=== PATIENT | male | born 1960 | race Caucasian/White ===

== ENCOUNTER 2019-01-02 08:15 | Emergency (ER) | payer BC, SELFPAY ==
[2019-01-02 08:16] VITALS: BP 204/110; PULSE 84; RESP 16; TEMP 36.7; O2SAT 99; BMI 31.0
--- NOTE | 2019-01-02 08:29 | EKG12_ITS ---
Test Reason : CP Blood Pressure : / mmHG Vent. Rate : 083 BPM Atrial Rate : 083 BPM P-R Int : 162 ms QRS Dur : 100 ms QT Int : 360 ms P-R-T Axes : 053 024 044 degrees QTc Int : 423 ms Normal sinus rhythm Nonspecific ST abnormality Abnormal ECG Confirmed by JAMES CARMONA, VINCENT ([id number]), general expeditor ASHLIE CALDERÓN ([id number]) on 01/05/2019 11:37:43 AM Referred By: JOSEPH Confirmed By:VINCENT RAMIREZ MD
--- NOTE | 2019-01-02 08:29 | RAD_ITS ---
STUDY: X-RAY CHEST REASON FOR EXAM: Male, 58 years old. Intermittent chest pain one week TECHNIQUE : Single AP portable view of the chest. COMPARISON: None. FINDINGS: The lungs are clear and expanded. There is no demonstrated pleural abnormality. There is borderline cardiomegaly. Normal mediastinum and ryan. Normal visualized pulmonary arteries. There is atherosclerotic tortuosity of the aortic arch and descending thoracic aorta. There are diffuse degenerative changes of the visualized thoracic spine. Normal visualized ribs, clavicles, and shoulders. There is no demonstrated abnormality of the visualized soft tissue structures of the upper abdomen. RAD/Chest 1 View (Portable) IMPRESSION: Borderline, Cardiac enlargement and tortuous aorta no visualized acute focal infiltrate. Electronically Signed: Shagufta Montalvo MD at 9:00 EST Tel , Service support ,
[2019-01-02] MEDS: Aspirin 81 MG TAB.CHEW 324 MG PO (08:38)
--- NOTE | 2019-01-02 08:45 | ED.VISSUMM ---
- ER Visit Summary Date of Service: 01/02/19 Chief Complaint: Chest pain History of Present Illness: The patient is a 58 M with right-sided chest pain that has been going on for about a week and a half. The pain is dull. It is in his right upper chest and radiates to his back. Does get severe at times, but nothing seems to bring it on or make it worse. He takes Aleve, and it seems to help. 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 This was attributed to tobacco use. He was cathed and found to have a lesion which was treated with balloon angioplasty, but not amenable to stenting. He takes aspirin daily. Denies any history of PE or DVT. Denies any history of aortic disease. Denies any other associated symptoms like sweats, shortness of breath, nausea, lightheadedness, etc. Physical Examination: Blood pressure 204/110. Otherwise vitals unremarkable. Afebrile. Alert and oriented. No acute distress. Heart regular rate and rhythm with no murmurs. Lungs clear bilaterally. Extremities nontender with no edema. Pulses strong and equal. Skin appears normal without diaphoresis or pallor. Test Results: EKG shows sinus rhythm at a rate of [address] segment changes. No sign of acute ischemia or infarction pattern. There is no old EKG for comparison. Laboratory studies and chest x-ray are pending. Emergency Department Course and Treatment: Patient was placed on a monitor. EKG as above. He was treated with aspirin. His repeat blood pressure after sitting in the room for a few moments was 177/94. We will continue to monitor. Testing is pending. Work-up was all unremarkable. On reevaluation, patient is comfortable. Heart scores of 4. I was advising observation. Hospitalist spoke with the patient. He would like to go home. We will treat with aspirin, lisinopril, and Lipitor. Patient will also receive a Medrol Dosepak and use anti-inflammatories regularly. Follow-up with primary care for outpatient management. Treatment Plan: As above Disposition: Discharge Impression: 1. Chest pain This note was generated with [employer] software. It may contain incorrect words, spelling, and punctuation that were not noted in review of the chart prior to signing ED Disposition - Plan for ED Patient: Referrals: Remington Spencer MD [Primary Care Provider] -
[2019-01-02 08:46] LABS: Absolute Lymphocyte Count 1.58 X10^3/uL (0.83-4.51); Absolute Neutrophil Count 3.2 X10^3/uL (2.0-7.7); Basophil# 0.04 X10^3/uL; Basophil% 0.7 % (0-1); Eosinophil# 0.42 X10^3/uL; Eosinophils% 7.1 % (0-5); Hematocrit 44.7 % (40-54); Hemoglobin 15.4 g/dL (13.0-16.5); Lymphocyte # 1.58 X10^3/ul (4.0); Lymphocyte % 26.8 % (19-41); Mean Corp Hgb Conc 34.5 g/dL (32-36); Mean Corpuscular Hgb 28.3 pg (27.0-32.0); Mean Platelet Vol. 9.6 fl (6.2-12.0); Monocyte# 0.67 X10^3/uL; Monocyte% 11.4 % (0-10); NRBC Flagged by Analyzer 0 % (0-5); Neutrophil # 3.18 X10^3/uL (2.7-7.7); Neutrophil % 53.8 % (47-70); Platelet Count 198 K/mm3 (150-450); RBC Distribution Width CV 12.2 % (11.6-14.6); RBC Distribution Width SD 36.2 fl (35.1-43.9); Red Blood Count 5.45 M/mm3 (4.6-6.2); White Blood Count 5.9 K/mm3 (4.4-11.0)
[2019-01-02 08:47] VITALS: O2SAT 100
[2019-01-02 09:02] LABS: Anion Gap 6 (5-15); BUN 16 mg/dL (7-18); BUN/Creat Ratio 15.7 RATIO (10-20); Calcium,Total 8.8 mg/dL (8.5-10.1); Chloride 105 mmol/L (98-107); Creatinine, Serum 1.02 mg/dL (0.70-1.30); EST Glomerular Filtration Rate 80 mL/min (>60); Est Glom Filt Rate - Afr Amer 97 mL/min (>60); Glucose 197 mg/dL (74-106); Potassium 3.9 mmol/L (3.5-5.1); Sodium Level 139 mmol/L (136-145)
--- NOTE | 2019-01-02 10:14 | ED.DEP ---
ED Disposition - Plan for ED Patient: Instructions: CHEST PAIN, NonCardiac Prescriptions: Aspirin [Aspir 81] 81 mg PO DAILY #30 tablet.dr Prescription Printed Atorvastatin Calcium [Lipitor] 20 mg PO QHS #30 tab Prescription Printed Lisinopril 20 mg PO DAILY #30 tab Prescription Printed MethylPREDNISolone DosePak [Medrol DosePak] 4 mg PO UD #1 box Prescription Printed Referrals: Remington Spencer MD [Primary Care Provider] -
[2019-01-02 10:23] VITALS: BP 159/100; PULSE 67; RESP 17; O2SAT 99
== END 2019-01-02 10:28 | disposition home or self-care (01) ==
PROVIDERS: Emergency Provider Emergency Medicine; Family Provider Family Medicine; PCP Family Medicine
DX: R07.9 Chest pain, unspecified (principal); I25.2 Old myocardial infarction; Z79.82 Long term (current) use of aspirin; I25.10 Atherosclerotic heart disease of native coronary artery without angina pectoris; Z87.891 Personal history of nicotine dependence
CPT/HCPCS: 71045; 80048; 84484; 85025; 93005; 99285; A4216

== ENCOUNTER → 2019-02-21 15:16 | Outpatient (CLI) | payer BC, SELFPAY ==
--- NOTE | 2019-02-21 15:22 | RAD_ITS ---
STUDY: X-RAY - CERVICAL SPINE REASON FOR EXAM: Male, 58 years old. NECK PAIN, NO TRAUMA TECHNIQUE: 6 view(s) of the cervical spine were obtained. COMPARISON: None FINDINGS: Normal anterior atlantoaxial articulation. Normal odontoid process. Normal cervical lordosis. There is endplate spondylosis of the cervical spine from C5 to T1. There is severe disc space narrowing at the C5-6, C6-7, and C7-T1 levels. There is multi-level osseous foraminal stenosis. The soft tissue structures are unremarkable. RAD/Cerv Spine 4 or 5 Views IMPRESSION: Degenerative changes as detailed above. Electronically Signed: Frankie Golden MD at 23:56 EST , Service support ,
--- NOTE | 2019-02-21 15:22 | RAD_ITS ---
STUDY: X-RAY - THORACIC SPINE REASON FOR EXAM: Male, 58 years old. BACK PAIN, NO TRAUMA TECHNIQUE: 3 view(s) of the thoracic spine were obtained. COMPARISON: None. FINDINGS: Normal kyphosis of the thoracic spine. There is a mild thoracic dextroscoliosis. There is diffuse endplate spondylosis. Normal disc space heights. The soft tissue structures are unremarkable. RAD/Thoracic Spine 3 Views IMPRESSION: Mild thoracic dextroscoliosis. Diffuse endplate spondylosis of the thoracic spine. There is no evidence of fracture or subluxation. Disc spacing is preserved. Electronically Signed: Frankie Golden MD at 23:55 EST , Service support ,
== END ==
PROVIDERS: Family Provider Family Medicine; PCP Family Medicine; Referring Provider Family Medicine; Visit Provider Family Medicine
DX: M54.2 Cervicalgia (principal)
CPT/HCPCS: 72050; 72072

== ENCOUNTER 2019-03-28 17:30 | Outpatient (RCR) | payer BC, SELFPAY ==
--- NOTE | 2019-03-03 16:35 | HP.PTEVAL ---
Patient's Visit Information DEISI COLEMAN is a 58 year old M referred to Physical Therapy by Remington Spencer MD with a diagnosis of CERVICALALGIA,BACK PAIN,DDD. Date of Evaluation: 03/03/19 Physical Therapist: Rolando Rueda PT, Cert MDT, OCS - Visit Plan Frequency: 2x /Week Duration: 4 Weeks Plan: PT INTERVENTION ICTX 18-26# X15MIN ,THORACIC MOBILITY,CERVICAL /POSTURAL EX'S. MANUAL THERAPY - Subjective Findings: This 58 y/o male presents to physical therapy with cervical pain. Patient had cervical with symptoms between shoulder blades radiated to chest. Symptoms noticed with walking on treadmill with arms motion thus had urning and muscle spasms . Patient went to ER cardiac workup at [facility] and [facility]. Patient seen DR lehman PT . Denies parathesia/tingling. Denies CARTER/dizziness/tinnutus. Patient sleeping good. Patient pain affects ADL'S ,job demands and function. Aggavating factors lifting,exercise . Alleviating factors rest. VOCATION: [employer]. SOCAIL: - Pain Bilateral Neck Pain Intensity (Out of 10): 1 Pain Intensity Range: 10 - Objective POSTURE: mild foward posture ,rounded shoulders. NEURO: denies parathesia/tingling,reflexes C5-6-7. PALAPTION: tender UT/scapular. CERVICAL ROM: flexion min loss,rotation/lateral flexion min/mod loss,extension mod loss. THORCACIC ROM: flexion min loss ,extension mod loss,rotation mod loss. MMT: BUE 4/5 ,SHOULDER 4-/5 with h/o DJD G-H - Special Tests C/S Radiculapathy - Left Upper limb tension test: Negative C/S Radiculapathy - Right Upper limb tension test: Negative C/S Radiculapathy - Left Spurlings: Negative C/S Radiculapathy - Right Spurlings: Negative C/S Radiculapathy - Left Cervical distraction: Negative C/S Radiculapathy - Right Cervical distraction: Negative C/S Radiculapathy - Left Relief test: Negative C/S Radiculapathy - Right Relief test: Negative Sharp Rolando: Negative Vertebral Artery Test: Negative Alar Ligament Test: Negative Cervical Sitting: Protrusion - Mechanical Response: No effect Cervical Sitting: Protrusion - Symptoms During Testing: No effect Cervical Sitting: Protrusion - Symptoms After Testing: No effect Cervical Sitting: Retraction - Mechanical Response: No effect Cervical Sitting: Retraction - Symptoms During Testing: Increases Cervical Sitting: Retraction - Symptoms After Testing: No worse Cervical Sitting: Retraction-Extension - Mechanical Response: No effect Cerv Sitting: Retraction-Extension - Symptoms During Testing: Increases Cerv Sitting: Retraction-Extension - Symptoms After Testing: No worse Cervical Sitting: Sidebend Right - Mechanical Response: No effect Cervical Sitting: Sidebend Right - Symptoms During Testing: No effect Cervical Sitting: Sidebend Right - Symptoms After Testing: No effect Cervical Sitting: Sidebend Left - Mechanical Response: No effect Cervical Sitting: Sidebend Left - Symptoms During Testing: No effect Cervical Sitting: Sidebend Left - Symptoms After Testing: No effect Cervical Sitting: Rotation Right - Mechanical Response: No effect Cervical Sitting: Rotation Right - Symptoms During Testing: No effect Cervical Sitting: Rotation Right - Symptoms After Testing: No effect Cervical Sitting: Rotation Left - Mechanical Response: No effect Cervical Sitting: Rotation Left - Symptoms During Testing: No effect Cervical Sitting: Rotation Left - Symptoms After Testing: No effect Cervical Sitting: Flexion - Mechanical Response: No effect Cervical Sitting: Flexion - Symptoms During Testing: Produces Cervical Sitting: Flexion - Symptoms After Testing: No effect - Goals Goal 1:: Patient to be Independanmt with HEP. Goal Time Frame: 4-6 Weeks Goal 2:: Patient improve posture for job demnads Goal Time Frame: 4-6 Weeks Goal 3:: Patient decrease cervical pain by 50 % or> to improve function with ADLS. Goal Time Frame: 4-6 Weeks Goal 4:: Patient to increase cervical ROM for function of recovery Goal Time Frame: 4-6 Weeks Goal 5:: Patient to improve neck owestry by 5 points or > to improve function. - Rehabilitation Potential Physical Therapy Diagnosis: This patient has cervical pain radiaties to scapular abd anter chest with decrease ROM cervical trhoracic ,x-Rays showed DDD thus benifit from skilled PT Rehabilitation Potential: Good - Anticipated Interventions Patient/Client Instruction: Educate patient on: Condition, Plan of Care For the Purpose of:: To decrease pain, To increase ROM, To improve muscle performance and motor function, To improve ability to perform ADL's, To increase tolerance to activity/condition/position, To improve performance and independence with ADL's, To improve ability of physical actions for home/community/work/leisure, To improve gait and locomotor functions, To improve health of tissue, To decrease soft tissue restriction, To increase flexibility/ROM, To improve ability to perform tasks related to life management Therapeutic Exercise to Include: Strength training, Body mechanics, Postural training, Flexibilty training, Active ROM For the Purpose of:: To decrease pain, To increase ROM, To improve muscle performance and motor function, To improve ability to perform ADL's, To increase tolerance to activity/condition/position, To improve ability of physical actions for home/community/work/leisure, To improve health of tissue, To decrease soft tissue restriction, To increase flexibility/ROM, To improve ability to perform tasks related to life management TENS: Yes IF ES: Yes Cryotherapy (ice pack, ice massage): Yes Thermo therapy (hot pack): Yes Ultrasound (thermal/non thermal): Yes Intermittent cervical traction: Yes - # For the Purpose of:: To decrease pain, To increase ROM, To improve nutrient delivery to tissue, To increase oxygenation perfusion, To improve health of tissue, To decrease soft tissue restriction, To increase flexibility/ROM Thank you for the opportunity to evaluate your patient. For Medicare and Medicare HMO plans, please review the plan of care and approve it. It will need to be FAXED BACK to us at [phone] for Medicare purposes. For Medicare only, by signing this I certify the plan of care. Please let me know if there are questions or concerns regarding this plan of care. Physician Signature: Date:
--- NOTE | 2019-05-30 10:50 | HP.PTDCNRP_ITS ---
DEISI COLEMAN was seen in my office for initial evaluation on 03/03/19. The following Plan of Care was established for this patient: Initial Frequency: 2x /Week Initial Duration: 4 Weeks Patient/Client Instruction: Educate patient on: Condition, Plan of Care For the Purpose of:: To decrease pain, To increase ROM, To improve muscle performance and motor function, To improve ability to perform ADL's, To increase tolerance to activity/condition/position, To improve performance and independence with ADL's, To improve ability of physical actions for home/community/work/leisure, To improve gait and locomotor functions, To improve health of tissue, To decrease soft tissue restriction, To increase flexibility/ROM, To improve ability to perform tasks related to life management Therapeutic Exercise to Include: Strength training, Body mechanics, Postural training, Flexibilty training, Active ROM For the Purpose of:: To decrease pain, To increase ROM, To improve muscle performance and motor function, To improve ability to perform ADL's, To increase tolerance to activity/condition/position, To improve ability of physical actions for home/community/work/leisure, To improve health of tissue, To decrease soft tissue restriction, To increase flexibility/ROM, To improve ability to perform tasks related to life management TENS: Yes IF ES: Yes Cryotherapy (ice pack, ice massage): Yes Thermo therapy (hot pack): Yes Ultrasound (thermal/non thermal): Yes Intermittent cervical traction: Yes - -# For the Purpose of:: To decrease pain, To increase ROM, To improve nutrient delivery to tissue, To increase oxygenation perfusion, To improve health of tis ricky, To decrease soft tissue restriction, To increase flexibility/ROM This patient was last seen in our office 03/28/19. Pertinent comments regarding their Physical therapy will appear below: Patient seen for PT for cervicalgia,back pain . PT interventions to include MODALTIES ICTX, postural strengthening mobility thoracic spine. At this point I will be discontinuing this patient from physical therapy. I would be happy to see this patient again in the future if found appropriate by the physician. Thank you! Rolando Rueda, PT, Cert MDT, OCS
== END 2019-03-28 19:00 | disposition home or self-care (01) ==
LOC: PT 17:30
PROVIDERS: PCP Family Medicine; Referring Provider Family Medicine; Visit Provider Family Medicine
DX: M54.9 Dorsalgia, unspecified (principal); M50.30 Other cervical disc degeneration, unspecified cervical region; M51.34 Other intervertebral disc degeneration, thoracic region
CPT/HCPCS: 97012; 97110; 97162

== ENCOUNTER → 2022-01-09 | Outpatient (CLI) | payer BC, SELFPAY ==
[2022-01-09 18:01] LABS: Hematocrit 43.8 % (40-54); Hemoglobin 14.8 g/dL (13.0-16.5); Mean Corp Hgb Conc 33.8 g/dL (32-36); Mean Corpuscular Hgb 27.8 pg (27.0-32.0); Mean Corpuscular Volume 82.3 fL (80-94); Mean Platelet Vol. 10.6 fl (6.2-12.0); Platelet Count 261 K/mm3 (150-450); RBC Distribution Width SD 35.8 fl (35.1-43.9); Red Blood Count 5.32 M/mm3 (4.6-6.2); White Blood Count 7.3 K/mm3 (4.4-11.0)
[2022-01-09 18:37] LABS: Anion Gap 9 (5-15); BUN 15 mg/dL (7-18); BUN/Creat Ratio 14.6 RATIO (10-20); Chloride 99 mmol/L (98-107); Cholesterol 227 mg/dL (200); Creatinine, Serum 1.03 mg/dL (0.70-1.30); EST Glomerular Filtration Rate 78 mL/min (>60); Est Glom Filt Rate - Afr Amer 95 mL/min (>60); Glucose 249 mg/dL (74-106); High Density Lipoprotein 40 mg/dL; Potassium 3.7 mmol/L (3.5-5.1); Sodium Level 135 mmol/L (136-145); Triglycerides 289 mg/dL; Very Low Density Lipoprotein 58 mg/dL (5-40)
== END | disposition home or self-care (01) ==
LOC: MFPLAB 16:59
PROVIDERS: PCP Family Medicine; Visit Provider Family Medicine
DX: I10 Essential (primary) hypertension (principal); Z12.5 Encounter for screening for malignant neoplasm of prostate
CPT/HCPCS: 36415; 80048; 80061; 84153; 85027; G0103

== ENCOUNTER → 2022-03-12 | Outpatient (CLI) | payer BC, SELFPAY ==
[2022-03-12 10:20] LABS: Bacteria 0 SEEN /hpf (None Seen); Mucous, Urine 0 SEEN /hpf (<or=2+); Red Blood Cells-Urine 0 SEEN /hpf (0-5); Squamous Epithelial Cells - UA 0 SEEN /hpf (0-5)
[2022-03-12 10:25] LABS: Color, Urine Yellow (Yellow); Glucose, Dipstick 250 mg/dl (Normal); Ketone-Dipstick Negative (Negative); Leukocyte Esterase-Dipstick Negative /ul (Negative); Nitrite-Dipstick Negative (Negative); Occult Blood-Urine Negative /ul (Negative); Protein-Dipstick 15 mg/dl (Negative); Urine Bilirubin Dipstick Negative (Negative); Urine Clarity Clear (Clear); Urine Urobilinogen Normal (Normal); Urine pH 6.5 (5.0 - 8.0)
[2022-03-12 10:40] LABS: White Blood Cells 0-5 SEEN /hpf (0-5)
== END | disposition home or self-care (01) ==
LOC: LABSPEC 10:15
PROVIDERS: PCP Family Medicine; Referring Provider Family Medicine; Visit Provider Family Medicine
DX: R30.0 Dysuria (principal)
CPT/HCPCS: 81001; 87086